=== PATIENT | female | born 1950 | race Caucasian/White ===

== ENCOUNTER 2019-04-22 20:37 | Emergency (ER) | payer BC ==
[~2019-04-22] VITALS: Ht 170.2 cm; Wt 81.6 kg
== END 2019-04-22 23:06 | disposition home or self-care (01) ==
LOC: ER 20:37
DX: S52.591A Other fractures of lower end of right radius, initial encounter for closed fracture (principal); M79.631 Pain in right forearm; W18.39XA Other fall on same level, initial encounter; Y93.89 Activity, other specified; Y92.520 Airport as the place of occurrence of the external cause; Y99.8 Other external cause status